=== PATIENT | male | born 1985 | race African-American/Black ===

== ENCOUNTER 2023-12-04 10:22 | Emergency (ER) | payer OTHER ==
[~2023-12-04] VITALS: Ht 172.7 cm; Wt 90.2 kg
[2023-12-04] MEDS ORDERED: LIDO5DIS41 TOP (11:11)
[2023-12-04] MEDS ORDERED: MELA5CAP2 PO (11:11)
[2023-12-04] MEDS ORDERED: NAPR1TAB86 PO (11:11)
[2023-12-04] MEDS ORDERED: BACL1TAB9 PO (11:11)
[2023-12-04] MEDS ORDERED: DICL100G10 TOP (11:11)
[2023-12-04 12:15] LABS: BASO % 0.5 % (0.0-1.0); HEMATOCRIT 41.7 % (42.0-52.0); LYMPH # 2.2 10^3/uL (1.5-5.0); LYMPH % 56.8 % (24.0-44.0); MEAN CORPUSCULAR HEMOGLOBIN 31.6 pg (27.0-33.0); MEAN CORPUSCULAR HGB CONC 33.6 g/dl (32.0-36.5); MEAN CORPUSCULAR VOLUME 94.1 fl (80.0-96.0); MONO # 0.4 10^3/uL (0.0-0.8); MONO % 9.5 % (2.0-8.0); NEUTROPHILS # 1.3 10^3/uL (1.5-8.5); NEUTROPHILS % 31.9 % (36.0-66.0); PLATELET COUNT, AUTOMATED 263 10^3/uL (150-450); RED BLOOD COUNT 4.43 10^6/uL (4.30-6.10); WHITE BLOOD COUNT 3.9 10^3/uL (4.0-10.0)
[2023-12-04 12:28] LABS: INR 0.99; PARTIAL THROMBOPLASTIN TIME 25.6 SECONDS (24.8-34.2); PROTHROMBIN TIME 12.8 SECONDS (12.5-14.5)
[2023-12-04 12:38] LABS: CK-MB VALUE MASS < 1.0 NG/ML (<3.6); LIPASE 36 U/L (12-53)
[2023-12-04 12:40] LABS: ALBUMIN 4.1 G/DL (3.2-5.2); ALKALINE PHOSPHATASE 61 U/L (46-116); ALT/SGPT 22 U/L (7.0-40); AST/SGOT 22 U/L (<34); BILIRUBIN,DIRECT 0.2 MG/DL (<0.4); BILIRUBIN,TOTAL 0.7 MG/DL (0.3-1.2); BLOOD UREA NITROGEN 12 MG/DL (9-23); CALCIUM LEVEL 9.2 MG/DL (8.5-10.1); CARBON DIOXIDE LEVEL 28 MMOL/L (20-31); CHLORIDE LEVEL 107 MMOL/L (98-107); CPK CREATINE PHOSPHOKINASE 342 U/L (46-171); GLOMERULAR FILTRATION RATE > 60.0 (>60); GLUCOSE, FASTING 92 MG/DL (60-100); MB/CK RELATIVE INDEX 0.29 (< OR =4); POTASSIUM SERUM 3.8 MMOL/L (3.5-5.1); SODIUM LEVEL 137 MMOL/L (136-145); TOTAL PROTEIN 7.4 G/DL (5.7-8.2)
[2023-12-04 12:42] LABS: FREE T4 0.99 NG/DL (0.89-1.76); THYROID STIMULATING HORMONE 0.524 uIU/ML (0.55-4.78)
[2023-12-04] MEDS ORDERED: ISOVUE-370 76% 100ML VIAL As Ordered ONE (13:03)
[2023-12-04 14:06] LABS: CK-MB VALUE MASS < 1.0 NG/ML (<3.6)
[2023-12-04 14:19] LABS: CPK CREATINE PHOSPHOKINASE 324 U/L (46-171)
[2023-12-04 15:45] VITALS: BP 131/86; TEMP 97.8
[2023-12-04 15:46] VITALS: O2SAT 98
== END 2023-12-04 15:58 | disposition home or self-care (01) ==
LOC: M ED 10:22
DX: R07.9 Chest pain, unspecified (principal); Z79.1 Long term (current) use of non-steroidal anti-inflammatories (NSAID); Z79.891 Long term (current) use of opiate analgesic; Z79.899 Other long term (current) drug therapy
CPT/HCPCS: 36415; 71046; 71275; 80048; 80076; 82550; 82553; 83690; 83880; 84439; 84443; 84484; 85025; 85610; 85730; 93005; 99284; Q9967

== ENCOUNTER → 2024-06-06 | Outpatient (CLI) | payer OTHER ==
[~2024-06-06] MED LIST: BACL1TAB9 PO; DICL100G10 TOP; LIDO5DIS41 TOP; MELA5CAP2 PO; NAPR1TAB86 PO
== END ==
LOC: M SOG 08:03
PROVIDERS: ATTEND Physician Assistant
DX: M25.531 Pain in right wrist (principal); Z53.9 Procedure and treatment not carried out, unspecified reason

== ENCOUNTER → 2024-07-11 | Outpatient (CLI) | payer OTHER | LOC: M CARPUL 14:00 | PROVIDERS: ATTEND Family Medicine | DX: R07.9 Chest pain, unspecified (principal) ==